=== PATIENT | male | born 1950 | race Caucasian/White ===

== ENCOUNTER 2024-02-22 08:37 | Inpatient (IN) | payer OTHER ==
[2024-02-22] MEDS ORDERED: NITROGLYCERIN 0.4 MG/TAB SL ONE (08:52)
[2024-02-22] MEDS ORDERED: ASPIRIN 81 MG CHEWABLE TABLET ONE (08:52)
[2024-02-22 09:15] LABS: Absolute Basophils 0.1 K/uL (0-0.5); Absolute Eosinophils 0.2 K/uL (0-0.5); Absolute Lymphocytes (CBC) 1.9 K/uL (0.7-4.9); Absolute Monocytes 0.6 K/uL (0.1-1.3); Absolute Neutrophil 3.4 K/uL (1.8-8.0); Basophils % 0.8 % (0-1.3); Eosinophils % 3.5 % (0-4.4); Hematocrit 37.5 % (39.6-49.0); Hemoglobin 12.7 g/dL (13.6-17.9); Lymphocytes % 31.3 % (15.3-44.8); MCH 31.6 pg (27.0-35.0); MCHC 33.7 g/dL (32.0-36.0); MCV 93.6 fL (80-100); Monocytes % 9.5 % (3.3-12.3); Neutrophils % 54.9 % (41.7-73.7); Nucleated Red Blood Cells % 0.1 % (0-0); Platelets 160 thou/uL (152-406); RBC Red Blood Cell Count 4.01 M/uL (4.33-5.43); Red Cell Distribution Width 13.7 % (12.1-15.2)
[2024-02-22 09:18] LABS: PT Prothrombin Time 12.9 SECONDS (9.5-12.5); Protime INR 1.18
[2024-02-22 09:31] LABS: Anion Gap 12.1 mEq/L (5.0-15.0); Potassium 4.1 mEq/L (3.5-5.1); Troponin High Sensitivity 11.2 pg/mL (<58.9)
--- NOTE | 2024-02-22 10:47 | EDPHYS ---
Physician Documentation [facility] Name: Nazario Stephenson Age: 73 yrs Sex: Male : 1950 Arrival Date: 02/22/2024 Time: 08:37 Bed 6 Private MD: Damian Posadas ED Physician Massimo Booth HPI: 02/21 10:41 This 73 yrs old Male presents to ER via Wheelchair with complaints of Chest Pain. rn 10:41 The patient or guardian reports chest pain that is located primarily in the substernal rn area. Onset: this morning. The pain does not radiate. Associated signs and symptoms: Pertinent positives: shortness of breath, Pertinent negatives: abdominal pain, cough. The chest pain is described as a heaviness, a pressure. Duration: The patient or guardian reports multiple episodes, that are intermittent. Modifying factors: The symptoms are alleviated by nothing. the symptoms are aggravated by nothing. Severity of pain: At its worst the pain was moderate in the emergency department the pain has improved. The patient has not experienced similar symptoms in the past. The patient has not recently seen a physician. Patient reports chest pain that got worse this morning, lasted about 30 minutes, now improving at rest. Has been having episodes of chest pain intermittently for the last 2 weeks sometimes with exertion but now happening at rest. No history of AK or stent.. Historical: - Allergies: 08:47 No Known Allergies; iw - PMHx: 08:47 Diabetes mellitus; Atrial fibrillation; iw - PSHx: 08:47 pacemaker; iw - Immunization history:: Adult Immunizations not up to date. - Social history:: Smoking status: Patient/guardian denies using tobacco, the patient reports quitting approximately 25 years ago. - Family history:: not pertinent. - Hospitalizations: : No recent hospitalization is reported. ROS: 10:41 Constitutional: Negative for fever, chills, and weight loss, Cardiovascular: Positive rn for chest pain Respiratory: Negative for shortness of breath, cough, wheezing, and pleuritic chest pain, Abdomen/GI: Negative for abdominal pain, nausea, vomiting, diarrhea, and constipation, MS/Extremity: Negative for injury and deformity, Skin: Negative for injury, rash, and discoloration, Neuro: Negative for headache, weakness, numbness, tingling, and seizure, Exam: 10:41 Constitutional: This is a well developed, well nourished patient who is awake, alert, rn and in no acute distress. Cardiovascular: Regular rate and rhythm. No pulse deficits. Respiratory: No increased work of breathing, no retractions or nasal flaring. Abdomen/GI: Soft, non-tender MS/ Extremity: Pulses equal, no cyanosis. Neurovascular intact. Full, normal range of motion. Equal circumference. 10:41 ECG was reviewed by the Attending Physician. rn Vital Signs: 08:46 BP 184 / 93; Pulse 103; Resp 16; Temp 98.1; Pulse Ox 100% on R/A; Weight 106.59 kg; iw Height 5 ft. 11 in. ; Pain 4/10; 09:00 BP 163 / 79; Pulse 84; Resp 18; Pulse Ox 97% on R/A; rs5 11:58 BP 115 / 61; Pulse 63; Resp 15; Pulse Ox 100% ; nj1 08:46 Body Mass Index 32.78 (106.59 kg, 180.34 cm) iw 08:46 Pain Scale: Adult iw MDM: 08:39 Patient medically screened. rn 10:41 Differential diagnosis: acute myocardial infarction, acute pericarditis, coronary rn artery disease pericarditis, stable angina, unstable angina. HEART Score: History: Highly Suspicious (2), ECG: Non specific repolarization disturbance / LBTB / PM (1), Age: > or = 65 years (2), Risk Factors: 1 or 2 risk factors (1), Troponin: < or = 1 x Normal Limit (0), Total Score = 6. Data reviewed: vital signs, nurses notes, lab test result(s), EKG, radiologic studies, plain films, and as a result, I will admit patient. Consideration of Admission/Observation Patient was admitted/placed on observation. Escalation of care including admission/observation considered. Care significantly affected by the following chronic conditions: Diabetes. Counseling: I had a detailed discussion with the patient and/or guardian regarding the historical points, exam findings, and any diagnostic results supporting the discharge/admit diagnosis, lab results, radiology results, the need for further work-up and treatment in the hospital. Response to treatment: the patient's symptoms have markedly improved after treatment, and as a result, I will admit patient. 02/21 08:44 Order name: Basic Metabolic Panel; Complete Time: 10:26 rn 02/21 08:44 Order name: CBC with Diff; Complete Time: 10: rn 02/21 08:44 Order name: NT PRO-BNP; Complete Time: 10: rn 02/21 08:44 Order name: PT-INR; Complete Time: 10: rn 02/21 08:44 Order name: Troponin HS; Complete Time: 10: rn 02/21 15:14 Order name: Troponin High Sensitivity; Complete Time: 15:51 EDMS 02/21 08:44 Order name: XRAY Chest (1 view); Complete Time: 11:22 rn 02/21 08:44 Order name: EKG; Complete Time: 08:45 rn 02/21 08:44 Order name: Cardiac monitoring; Complete Time: 08:48 rn 02/21 08:44 Order name: EKG - Nurse/Tech; Complete Time: 08:48 rn 02/21 08:44 Order name: IV Saline Lock; Complete Time: 08:48 rn 02/21 08:44 Order name: Labs collected and sent; Complete Time: 08:59 rn 02/21 08:44 Order name: O2 Per Protocol; Complete Time: 08:59 rn 02/21 08:44 Order name: O2 Sat Monitoring; Complete Time: 08:59 rn EC:41 Rate is 91 beats/min. Rhythm is regular. QRS interval is prolonged at 180 msec. No Q rn waves. T waves are Normal. No ST changes noted. Clinical impression: paced rhythm. Interpreted by me. Reviewed by me. Administered Medications: 08:50 Drug: Aspirin PO Chewable Tablet 324 mg PO once; 81 mg tablets x 4 Route: PO; rs5 10:05 Follow up: Response: No adverse reaction rs5 08:50 Drug: Nitroglycerin Sublingual 0.4 mg Sublingual once Route: Sublingual; rs5 10:01 Follow up: Response: No adverse reaction rs5 Disposition Summary: 02/22/24 10:47 Hospitalization Ordered Notes: Hospitalization Status: Inpatient Admission rn Provider: David Booth rn Condition: Stable rn Problem: new rn Symptoms: have improved rn Bed/Room Type: Standard rn Location: Telemetry/MedSurg (Inpatient)(02/22/24 14:00) yoselyn Room Assignment: [facility](02/22/24 14:00) reba Diagnosis - Unstable angina rn - Chest pain, unspecified rn Forms: - Medication Reconciliation Form rn - SBAR form rn - Leadership Thank You Letter rn Signatures: Dispatcher [employer] Fabi Lopez, RN Massimo Prieto MD MD rn Attema, Lee, [employer]-C [employer]-Cla1 James Gentile RN RN ja1 Ashley Martin RN RN kd3 Yfn Reed, RN RN rs5 Corrections: (The following items were deleted from the chart) 11:46 10:47 Telemetry/MedSurg (Inpatient) rn kd3 11:46 10:47 rn kd3 14:00 11:46 [facility] ER HOLD kd3 ja1 14:00 11:46 ERHOLD- kd3 ja1
--- NOTE | 2024-02-22 10:47 | ER ---
Nurse's Notes [facility] Name: Nazario Stephenson Age: 73 yrs Sex: Male : 1950 Arrival Date: 02/22/2024 Time: 08:37 Bed 6 Private MD: Damian Posadas Diagnosis: Unstable angina;Chest pain, unspecified Presentation: 02/21 08:46 Chief complaint: Patient states: chest pain X 30 minutes, worse on exertion. iw Coronavirus screen: At this time, the client does not indicate any symptoms associated with coronavirus-19. Ebola Screen: Patient negative for fever greater than or equal to 101.5 degrees Fahrenheit, and additional compatible Ebola Virus Disease symptoms Patient denies exposure to infectious person. Patient denies travel to an Ebola-affected area in the 21 days before illness onset. Initial Sepsis Screen: Does the patient meet any 2 criteria? No. Patient's initial sepsis screen is negative. Does the patient have a suspected source of infection? No. Patient's initial sepsis screen is negative. Risk Assessment: Do you want to hurt yourself or someone else? Patient reports no desire to harm self or others. Onset of symptoms was February 22, 2024. 08:46 Method Of Arrival: Wheelchair iw 08:46 Acuity: MERVAT 2 iw Historical: - Allergies: 08:47 No Known Allergies; iw - PMHx: 08:47 Diabetes mellitus; Atrial fibrillation; iw - PSHx: 08:47 pacemaker; iw - Immunization history:: Adult Immunizations not up to date. - Social history:: Smoking status: Patient/guardian denies using tobacco, the patient reports quitting approximately 25 years ago. - Family history:: not pertinent. - Hospitalizations: : No recent hospitalization is reported. Screenin:45 [facility] ED Fall Risk Assessment (Adult) History of falling in the last 3 months, rs5 including since admission No falls in past 3 months (0 pts) Confusion or Disorientation No (0 pts) Intoxicated or Sedated No (0 pts) Impaired Gait No (0 pts) Mobility Assist Device Used No (0 pt) Altered Elimination No (0 pt) Score/Fall Risk Level 0 - 2 = Low Risk Oriented to surroundings, Maintained a safe environment. 08:45 Abuse screen: Denies threats or abuse. Abuse screen: Denies threats or abuse. rs5 Nutritional screening: No deficits noted. Tuberculosis screening: No symptoms or risk factors identified. Assessment: 08:42 General: Appears in no apparent distress. uncomfortable, Behavior is calm, cooperative. rs5 Pain: Complains of pain in chest Pain does not radiate. Pain currently is 3 out of 10 on a pain scale. Quality of pain is described as aching, Pain began Is continuous. Neuro: Level of Consciousness is awake, alert, obeys commands, Oriented to person, place, time, situation. Cardiovascular: Patient's skin is warm and dry. Rhythm is regular. 08:42 Respiratory: Airway is patent Respiratory effort is even, unlabored, Respiratory rs5 pattern is regular, symmetrical. GI: Abdomen is round non-distended, Abd is soft and non tender X 4 quads. : No signs and/or symptoms were reported regarding the genitourinary system. EENT: No signs and/or symptoms were reported regarding the EENT system. Derm: Skin is intact, Skin is pink, warm \\T\\ dry. Musculoskeletal: Range of motion: intact in all extremities. 08:42 Reassessment: Pt states "earlier my chest pain was about a 7 or 8 but it's about a 3 rs5 now" . 09:07 Reassessment: Patient and/or family updated on plan of care and expected duration. Pain rs5 level reassessed. Patient is alert, oriented x 3, equal unlabored respirations, skin warm/dry/pink. Patient denies pain at this time. Pain:. Cardiovascular: Denies chest pain. Respiratory: Respiratory effort is even, unlabored, Respiratory pattern is regular, symmetrical. 10:20 Reassessment: No changes from previously documented assessment. rs5 11:55 Reassessment: Patient and/or family updated on plan of care and expected duration. Pain rs5 level reassessed. Patient is alert, oriented x 3, equal unlabored respirations, skin warm/dry/pink. Patient denies pain at this time. Cardiovascular: Rhythm is regular. Respiratory: Respiratory effort is even, unlabored, Respiratory pattern is regular, symmetrical. Vital Signs: 08:46 BP 184 / 93; Pulse 103; Resp 16; Temp 98.1; Pulse Ox 100% on R/A; Weight 106.59 kg; iw Height 5 ft. 11 in. ; Pain 03/07; 09:00 BP 163 / 79; Pulse 84; Resp 18; Pulse Ox 97% on R/A; rs5 11:58 BP 115 / 61; Pulse 63; Resp 15; Pulse Ox 100% ; nj1 08:46 Body Mass Index 32.78 (106.59 kg, 180.34 cm) iw 08:46 Pain Scale: Adult iw ED Course: 08:38 Patient arrived in ED. mr 08:38 Damian Posadas is Private Physician. mr 08:39 Massimo Booth MD is Attending Physician. rn 08:45 Patient has correct armband on for positive identification. Allergy band placed. Call rs5 light in reach. Side rails up X2. Client placed on continuous cardiac and pulse oximetry monitoring. NIBP monitoring applied. nuclear monitoring technician on. Pulse ox on. 08:45 No provider procedures requiring assistance completed. Patient maintains SpO2 rs5 saturation greater than 95% on room air. 08:46 Triage completed. iw 08:47 Arm band placed on. iw 08:47 Inserted saline lock: 20 gauge in right antecubital area, using aseptic technique. rs5 Blood collected. 08:56 Yfn Reed RN is Primary Nurse. rs5 10:17 XRAY Chest (1 view) In Process Unspecified. EDMS 10:47 David Booth MD is Hospitalizing Provider. rn 12:01 Provided Education on: use of call [place]. jl7 12:01 Patient admitted, IV remains in place. intact, No redness/swelling at site. jl7 Administered Medications: 08:50 Drug: Aspirin PO Chewable Tablet 324 mg PO once; 81 mg tablets x 4 Route: PO; rs5 10:05 Follow up: Response: No adverse reaction rs5 08:50 Drug: Nitroglycerin Sublingual 0.4 mg Sublingual once Route: Sublingual; rs5 10:01 Follow up: Response: No adverse reaction rs5 Medication: 09:13 VIS not applicable for this client. rs5 Outcome: 10:47 Decision to Hospitalize by Provider. rn 12:00 Admitted to ER Hold. Please see [facility] for further documentation. jl7 12:00 Condition: stable 12:00 Discharge instructions given to patient, 15:50 Patient left the ED. iw Signatures: Dispatcher [employer] EDND Leyla Ramírez, Reg Reg mr Fabi Smart, TIMMY WARNER Massimo Booth MD MD rn Leal, Jahala, RN RN jl7 Yfn Reed RN RN rs5 Gisele Shrestha RN RN nj1 Corrections: (The following items were deleted from the chart) 09:08 08:42 Pain: Complains of pain in chest Pain does not radiate. Pain currently is 5 out rs5 of 10 on a pain scale. Quality of pain is described as aching, Pain began Is continuous, rs5 16:11 16:11 Patient left the ED. iw iw
--- NOTE | 2024-02-22 11:04 | RAD REPORT ---
EXAM DESCRIPTION: Nicky Single View02/22/2024 10:15 am CLINICAL HISTORY: CHEST PAIN COMPARISON: CHEST PA AND LAT 2 VIEW dated 03/15/2010 TECHNIQUE: Portable AP view of the chest. FINDINGS: Decreased inspiratory effort limits evaluation. The lungs are clear. No pneumothorax or e ffusion. The cardiomediastinal contours are unremarkable. Left chest wall pacer in place. IMPRESSION: No acute cardiopulmonary process.
--- NOTE | 2024-02-22 11:37 | P.HP ---
Certification for Inpatient Patient admitted to: Inpatient With expected LOS: >2 Midnights Patient will require the following post-hospital care: None Practitioner: I am a practitioner with admitting privileges, knowledge of patient current condition, hospital course, and medical plan of care. Services: Services provided to patient in accordance with Admission requirements found in Title 42 Section 412.3 of the Code of Federal Regulations Patient History Date of Service: 02/22/24 Reason for admission: Unstable angina History of Present Illness: 73-year-old male with history of atrial fibrillation on chronic anticoagulation, hypertension, hyperlipidemia, ksd-jhjoikq-ebizojlqv diabetes with pacemaker in place presents emergency department chief complaint of chest pain. He reports has been having chest pain a few days per week usually with exertion but this time it developed while he was walking and persisted even at rest for that reason he came to the emergency department. He was evaluated in the emergency department his EKG was without STEMI criteria as initial high sensitive troponin was normal at 11.2 chest x-ray negative for acute findings. ED provider wishes to admit patient for unstable angina. Cardiology evaluated patient at bedside in the ED. - Past Medical/Surgical History -: Atrial fibrillation on chronic anticoagulation -: Hypertension -: Hyperlipidemia -: Diabetes mellitus type [id number] -: Pacemaker insertion 2022 Psychosocial/ Personal History: Lives at home with his - Family History Family History: Reviewed- Non-Contributory - Social History Smoking Status: Never smoker Alcohol use: No CD- Drugs: No Caffeine use: Yes Place of Residence: Home Review of Systems 10-point ROS is otherwise unremarkable Respiratory: Shortness of Breath Cardiovascular: Chest Pain Physical Examination - Physical Exam General: Alert, In no apparent distress, Oriented x3 HEENT: Atraumatic, PERRLA, Mucous membr. moist/pink Neck: Supple, 2+ carotid pulse no bruit, No LAD Respiratory: Clear to auscultation bilaterally, Normal air movement Cardiovascular: Regular rate/rhythm, Normal S1 S2 Gastrointestinal: Normal bowel sounds, No tenderness Musculoskeletal: No tenderness Integumentary: No rashes Neurological: Normal speech, Normal strength at 5/5 x4 extr, Normal tone, Normal affect - Studies Laboratory Data (last 24 hrs) 02/22/24 02/22/24 02/22/24 09:00 09:00 09:00 WBC 6.10 Hgb 12.7 L Hct 37.5 L Plt Count 160 PT 12.9 H INR 1.18 Sodium 137 Potassium 4.1 BUN 20 H Creatinine 1.16 Glucose 236 H Assessment and Plan - Plan Assessment: Unstable angina Atrial fibrillation on chronic anticoagulation Hypertension Hyperlipidemia Diabetes mellitus type [id number]-xuhddwyze Plan: Unstable angina Atrial fibrillation on chronic anticoagulation Last took Eliquis this morning 02/21 Hold Eliquis, will give dose therapeutic Lovenox tonight Plan for left heart catheterization afternoon of 02/22 Clear liquids after midnight, n.p.o. after breakfast on 02/22 Continue aspirin, statin, as needed morphine/nitroglycerin Currently nearly pain-free, trend troponins and monitor on telemetry Echocardiogram ordered and cardiology consulted-saw patient in ED Hypertension Hyperlipidemia Diabetes mellitus type [id number]-suyiecssc Continue home medications as appropriate ACHS Accu-Chek, sliding scale insulin DVT PPX: Therapeutic Lovenox x 1 tonight Code status: Full Discharge Plan: Home Plan to discharge in: 48 Hours - Advance Directives Does patient have a Living Will: No Does patient have a Durable POA for Healthcare: No - Code Status/Comfort Care Code Status Assessed: Yes (Full code) Critical Care: No Time Spent Managing Pts Care (In Minutes): 70
[2024-02-22 12:15] VITALS: BMI 32.8
[2024-02-22] MEDS ORDERED: NITROGLYCERIN 0.4 MG/TAB SL PRN (14:33)
[2024-02-22] MEDS ORDERED: MORPHINE 2 MG/ML SYR IV PRN (14:33)
[2024-02-22] MEDS ORDERED: ONDANSETRON 4 MG/2 ML VIAL IV PRN (14:33)
[2024-02-22] MEDS: INSULIN REGULAR (HUMAN) 100 UNIT/ML SQ SCH (14:33)
--- NOTE | 2024-02-22 18:02 | CON ---
Date of Consultation: 02/22/2024 Reason For Consultation: Chest pain. History Of Present Illness: A 73-year-old male, history of atrial fibrillation, on Eliquis. He took Eliquis this morning. Hypertension, diabetes, dyslipidemia, presented with chest pain, pressure lik e, radiates to the shoulder on an off and usually it is with exertion, but now minimal activities are bringing it on. Does not have any active chest pain at the present time. Past Medical History: As outlined above in HPI. Medications: Refer to reconciliation sheet for detailed list. Allergies: NO KNOWN DRUG ALLERGIES. Family History: No premature coronary artery disease or cancer. Social History: Does not smoke or drink. Does not use any drugs. Review of Systems: All systems were reviewed, they were negative except what was mentioned in HPI. Physical Examination: Vital Signs: Reviewed. Head and Neck: Pupils are equal, reactive to light. Intact eye movements. No JVD. No cervical lym phadenopathy. Neck is supple. Thyroid is not enlarged. Lungs: Clear to auscultation bilaterally. No rhonchi, rales, or crackles. No accessory muscle use. Heart: Regular rate and rhythm. No extra sounds. Abdomen: Soft, nontender. Bowel sounds positive. No organomegaly. No masses or hernia. No rigidi ty or rebound. Extremities: No edema, clubbing, or cyanosis. Intact pulses. Skin: No rash. No ulcers. Neurological: Alert, awake, oriented x3. No acute focal deficits appreciated. Investigations: His troponin is 11.2. BUN is 20 and creatinine 1.1. Hemoglobin is 12.7. Assessment And Recommendations: 1.Chest pain, very typical. It is unstable angina versus acute coronary syndrome. He was given asp irin. Start him on Lovenox 1 mg/kg subcu q.12 hours. He took Eliquis this morning so we will hold o ff on the angiogram until tomorrow afternoon unless his troponin rises significantly and also recomme nd to add Lipitor 40 mg q.h.s. 2.Atrial fibrillation, controlled. Continue current management. 3.Hypertension. Blood pressure is controlled. SR/MODL Voice ID: [id number] Report ID: [id number]
[2024-02-22] MEDS: ATORVASTATIN 40 MG TAB PO SCH (20:48)
[2024-02-22] MEDS: Enoxaparin 120 MG/0.8 ML SYR SQ SCH (20:49)
[2024-02-22] MEDS: APIXABAN 5 MG TABLET PO SCH (21:49)
[2024-02-23 03:42] LABS: Absolute Eosinophils 0.3 K/uL (0-0.5); Absolute Lymphocytes (CBC) 2.2 K/uL (0.7-4.9); Absolute Monocytes 0.5 K/uL (0.1-1.3); Absolute Neutrophil 3.6 K/uL (1.8-8.0); Basophils % 0.6 % (0-1.3); Eosinophils % 3.9 % (0-4.4); Hematocrit 31.9 % (39.6-49.0); Hemoglobin 10.8 g/dL (13.6-17.9); Lymphocytes % 32.6 % (15.3-44.8); MCHC 33.8 g/dL (32.0-36.0); MCV 94.7 fL (80-100); MPV 9.3 fL (7.6-11.3); Monocytes % 8.1 % (3.3-12.3); Neutrophils % 54.8 % (41.7-73.7); Nucleated Red Blood Cells % 0.1 % (0-0); Platelets 147 thou/uL (152-406); RBC Red Blood Cell Count 3.37 M/uL (4.33-5.43); Red Cell Distribution Width 13.6 % (12.1-15.2)
[2024-02-23 04:08] LABS: Albumin/Globulin Ratio 0.9 (1.1-1.8); Anion Gap 7.2 mEq/L (5.0-15.0); Bilirubin Direct 0.1 mg/dL (0-0.2); Bilirubin Indirect, Calculated 0.4 mg/dL (0.2-0.8); Bilirubin Total 0.5 mg/dL (0.2-1.0); Globulin 3.4 g/dL (2.3-3.5); Phosphorus 3.3 mg/dL (2.5-4.9); Potassium 4.2 mEq/L (3.5-5.1); Protein, Total 6.4 g/dL (6.4-8.2)
[2024-02-23] MEDS: glipiZIDE 5 MG TAB PO SCH (08:00)
[2024-02-23] MEDS: PIOGLITAZONE 15 MG TAB PO SCH (09:00)
[2024-02-23] MEDS: AMLODIPINE 5 MG TAB PO SCH (09:00)
[2024-02-23] MEDS: BERBERINE PO SCH (09:00)
[2024-02-23] MEDS: lisinopriL 20 MG TAB PO SCH (09:00)
[2024-02-23] MEDS ORDERED: HEPA 1000U/500MLS 2,000 UNIT/1,000 ML BAG IV ONE (09:06)
[2024-02-23] MEDS ORDERED: LIDOCAINE 1% 20 ML MDV ONE ×2 (09:06→15:20)
[2024-02-23] MEDS: ASPIRIN EC 81 MG TAB PO SCH (09:18)
[2024-02-23] MEDS ORDERED: VERAPAMIL HCL 10 MG/4 ML VIAL IV ONE (10:24)
[2024-02-23] MEDS ORDERED: HEPARIN 5000 UNIT/ML 1 ML VIAL ONE (10:25)
[2024-02-23] MEDS ORDERED: ATROPINE SULF 1 MG/10 ML SYR IV ONE (10:25)
[2024-02-23] MEDS ORDERED: HEPARIN 10,000 UNIT/10 ML VIAL IV ONE ×2 (10:25→15:53)
[2024-02-23] MEDS ORDERED: FENTANYL CITR 100 MCG/2 ML ONE (10:25)
[2024-02-23] MEDS ORDERED: TICAGRELOR 90 MG TABLET PO ONE ×2 (10:25→15:43)
[2024-02-23] MEDS ORDERED: MIDAZOLAM HCL 2 MG/2 ML INJ ONE (10:25)
[2024-02-23] MEDS ORDERED: CLOPIDOGREL 75 MG TABLET ONE (10:26)
[2024-02-23] MEDS ORDERED: ASPIRIN 325 MG TAB ONE (10:26)
--- NOTE | 2024-02-23 13:04 | P.PN ---
Date of Service: 02/23/24 Subjective: Denies further episodes of chest pains overnight Plan for heart catheterization today ROS: 10 point ROS as noted above, otherwise negative Physical exam GEN: Alert, oriented, NAD HEENT: Normal conjunctiva, sclera anicteric CV: Regular rate and rhythm, no edema Pulm: Nonlabored respirations on room air ABD: Soft, nontender, nondistended MSK: No joint tenderness Integumentary: No rashes Neuro: Normal speech, normal affect Vitals reviewed Assessment: Unstable angina Atrial fibrillation on chronic anticoagulation Hypertension Hyperlipidemia Diabetes mellitus type [id number]-[id number] Plan: Unstable angina Atrial fibrillation on chronic anticoagulation Last took Eliquis this morning 02/21 Hold Eliquis Plan for left heart catheterization today Continue aspirin, statin, as needed morphine/nitroglycerin No chest pain overnight-troponins did become elevated in the 100s but trended down now Echocardiogram ordered Hypertension Hyperlipidemia Diabetes mellitus type [id number] Continue home medications as appropriate ACHS Accu-Chek, sliding scale insulin DVT PPX: Therapeutic Lovenox x 1 tonight Code status: Full Discharge Plan: Home Plan to discharge in: 48 Hours Time Spent Managing Pts Care (In Minutes): 35
--- NOTE | 2024-02-23 14:03 | EKG ---
Test Date: 2024-02-22 Test Time: 08:31:26 Dairy Nutrition Specialist: SIMONA MEASUREMENT RESULTS: Intervals: Rate: 91 MN: QRSD: 180 QT: 436 QTc: 536 [place]: P: MN: QRS: -76 T: 87 INTERPRETIVE STATEMENTS: Ventricular-paced rhythm Abnormal ECG Compared to ECG 01/11/2013 09:14:20 Sinus rhythm no longer present First degree AV block no longer present Left-axis deviation no longer present Left ventricular hypertrophy no longer present Electronically Signed On 02-23-24 14:00:00 CDT by Raul Robins
[2024-02-23] MEDS ORDERED: HEPA 1000U/500MLS 1,000 UNIT/500 ML BAG IV ONE (15:06)
[2024-02-23] MEDS ORDERED: NA CHLORIDE 0.9% 500 ML ONE (15:14)
--- NOTE | 2024-02-23 16:00 | PN ---
Date of Progress Note: 02/23/2024 Subjective: Seen at bedside. At rest, he does not have any chest pain, but chest pain with normal a ctivities present. Review of Systems: Positive exertional chest pain. No nausea, vomiting, diarrhea. No abdominal pain. No dysuria, poly uria, or urinary urgency. No skin rash. All other systems were reviewed, they were negative. Physical Examination: Vital Signs: Reviewed. Head and Neck: Pupils are equal, reactive to light. Intact eye movements. No JVD. No cervical lym phadenopathy. Neck is supple. Thyroid is not enlarged. Lungs: Clear to auscultation bilaterally. No rhonchi, rales, or crackles. No accessory muscle use. Heart: Regular rate and rhythm. No extra sounds. Abdomen: Soft, nontender. Bowel sounds positive. No organomegaly. No mass or hernia. No rigidity or rebound. Extremities: No edema, clubbing, or cyanosis. Intact pulses. Skin: No rash or nodule. Neurologic: Alert, awake, oriented x3. No acute focal deficits appreciated. Investigations: Troponin is 109, down from 126, BUN 19, creatinine 1.01. Assessment/recommendations: 1.Cbj-ZT-hyeuuwmtm myocardial infarction. Continue Lovenox, baby aspirin. We will plan to do coron maulik angiogram today. However, clinical lab specialist machine is broken and it does not seem like it will be repair ed in the near future. I will recommend to transfer the patient to [facility] and will perform coronary angiogram, PCI as needed. In the interim, continue aspirin and Lovenox. 2.Elevated NT-proBNP. Obtain an echocardiogram. 3.Hypertension. Blood pressure is controlled. 4.Dyslipidemia. Change atorvastatin to 40 mg at bedtime. SR/MODL Voice ID: [id number] Report ID: [id number]
--- NOTE | 2024-02-23 17:15 | OP ---
Date of Procedure: 02/23/2024 Surgeon: LAVONNE FULLER Procedures Performed: 1.Selective coronary angiogram. 2.Left heart catheterization. 3.PCI of severe distal RCA. I used 3.0 x 28 overlapped by 2.75 x 12 mm Synergy drug-eluting stent d istally. 4.PCI of severe proximal RCA stenosis which was the culprit for the OK. I used 3.5 x 12 in the prox imal to mid and then 3.5 x 12 in the proximal segment, excellent expansion, no complications. Indication: Ixg-NJ-tzcrtlanr myocardial infarction. Access: Right radial artery 6-Nigerien closed with TR band. Complications: None. Bleeding: Less than 50 mL. Anesthesia: Total sedation time was 1 hour. Description Of Procedure: After risks, benefits, alternatives were explained, patient agreed to proc edure and signed informed consent. Patient was brought into cardiac catheterization laboratory, prep ped and draped in the usual sterile fashion. Then I accessed the right radial artery using pediatric micropuncture kit, placed a 6-Nigerien Slender sheath and took 5-Nigerien [place] 4.0 catheter into the ao rtic root over a J-wire, engaged left main and then right coronary artery, took standard views. Cath eter was pushed over the wire into the LV, measured the LVEDP and pullback did not record any gradien t. Then I exchanged for 6-Nigerien and JR4 guide, engaged the RCA, gave systemic heparin to assure ACT level 250 and gave Brilinta 180. Took a Runthrough wire into the RCA, placed it distally and using a 3.0 balloon, all lesions were pre-dilated and then we placed initially a 3.5 x 12 mm stent over the critical area and then there was a proximal edge dissection, so placed another 3.5 x 12 mm proximall y to overlap with the first stent and excellent results and then I took a 3.0 x 28 mm to the distal R CA, placed it successfully across the area of stenosis and there was still some significant stenosis distally, but the vessel tapers down, so I used 2.7 x 12 mm Synergy drug-eluting stent to overlap wit h the first stent and excellent results and then I removed the wire and final angiogram was satisfact ory. Then I removed the guide and the sheath, placed TR band with good hemostasis. Findings: 1.Left main; large and normal. 2.LAD; moderate to large size vessel with luminal irregularities. Mid segment has 20% to 30%. 3.Left circumflex has proximal 40%. Rest of it is normal. 4.The RCA has proximal 70%, then proximal to mid 99% focal, status post successful PCI and then mid to distal is 80%, status post successful PCI as above. 5.LVEDP is elevated at 14 mmHg. Conclusions: 1.Severe RCA disease, status post successful PCI as above. 2.Mild coronary artery disease elsewhere. Plan: Aspirin, high-dose statin, and Brilinta, and follow up in the office in 1 week postdischarge. SR/MODL Voice ID: [id number] Report ID: [id number]
[2024-02-23 18:52] VITALS: O2SAT 98
[2024-02-23] MEDS: ATORVASTATIN 10 MG TAB PO SCH (20:17)
[2024-02-23] MEDS: Enoxaparin 120 MG/0.8 ML SYR SQ SCH (20:17)
[2024-02-23] MEDS: TICAGRELOR 90 MG TABLET PO SCH (23:06)
[2024-02-24 05:41] LABS: Absolute Eosinophils 0.2 K/uL (0-0.5); Absolute Lymphocytes (CBC) 1.7 K/uL (0.7-4.9); Absolute Monocytes 0.6 K/uL (0.1-1.3); Basophils % 0.6 % (0-1.3); Eosinophils % 3.5 % (0-4.4); Hematocrit 31.8 % (39.6-49.0); Hemoglobin 10.7 g/dL (13.6-17.9); Lymphocytes % 26.4 % (15.3-44.8); MCH 31.8 pg (27.0-35.0); MCHC 33.6 g/dL (32.0-36.0); MCV 94.7 fL (80-100); MPV 9.4 fL (7.6-11.3); Monocytes % 8.8 % (3.3-12.3); Neutrophils % 60.7 % (41.7-73.7); Platelets 156 thou/uL (152-406); RBC Red Blood Cell Count 3.35 M/uL (4.33-5.43); Red Cell Distribution Width 13.4 % (12.1-15.2)
[2024-02-24 06:07] LABS: Anion Gap 8.7 mEq/L (5.0-15.0); Potassium 3.7 mEq/L (3.5-5.1); Troponin High Sensitivity 28.8 pg/mL (<58.9)
[2024-02-24] MEDS: POTASSIUM CL SA 10 MEQ TAB PO ONE (08:18)
[2024-02-24 08:42] VITALS: BP 132/62
[2024-02-24 09:11] VITALS: TEMP 97
--- NOTE | 2024-02-24 12:13 | ECHO ---
HEIGHT: 5 ft 11 in WEIGHT: 235 lb 0 oz DATE OF STUDY: 02/24/[address]: Berry Alford NP 2-DIMENSIONAL: YES M.MODE: YES DOPPLER: YES COLOR FLOW: YES TDS: PORTABLE: YES DEFINITY: BUBBLE STUDY: DIAGNOSIS: CHEST PAIN, UNSTABLE ANGINA CARDIAC HISTORY: CATHERIZATION: YES SURGERY: NO PROSTHETIC VALVE: NO PACEMAKER: YES MEASUREMENTS (cm) DIASTOLIC (NORMALS) SYSTOLIC (NORMALS) IVSd 1.3 (0.6-1.2) LA Diam 2.7 (1.9-4.0) LVEF 58% LVIDd 3.8 (3.5-5.7) LVIDs 2.7 (2.0-3.5) %FS 30% LVPWd 1.3 (0.6-1.2) Ao Diam 2.9 (2.0-3.7) 2 DIMENSIONAL ASSESSMENT: RIGHT ATRIUM: NORMAL LEFT ATRIUM: NORMAL RIGHT VENTRICLE: NORMAL LEFT VENTRICLE: NORMAL TRICUSPID VALVE: MILD TRICUSPID REGURGITATION MITRAL VALVE: MILD MITRAL REGURGITATION PULMONIC VALVE: NORMAL AORTIC VALVE: NORMAL PERICARDIAL EFFUSION: NONE AORTIC ROOT: NORMAL LEFT VENTRICULAR WALL MOTION: NORMAL DOPPLER/COLOR FLOW: SEE BELOW COMMENTS: 1. NORMAL LEFT VENTRICULAR EJECTION FRACTION 55-60% WITH NORMAL WALL MOTION 2. GRADE I DIASTOLIC DYSFUNCTION 3. MILD MITRAL REGURGITATION 4. MILD TRICUSPID REGURGITATION TECHNOLOGIST: DESHAUN VEGA
--- NOTE | 2024-02-24 12:39 | PN ---
Date of Progress Note: 02/24/2024 Subjective: Seen by bedside. Clinically, he is doing better. No chest pain. No complications at t he access site. Review of Systems: No chest pain, shortness of breath, orthopnea, cough. No nausea, vomiting, diarrhea. All other syst ems reviewed, they are negative. Physical Examination: Vital Signs: Reviewed. Head and Neck: Pupils are equal, reactive to light. Intact eye movements. No JVD. No cervical lym phadenopathy. Neck is supple. Thyroid is not enlarged. Lungs: Clear to auscultation bilaterally. No rhonchi, rales, or crackles. No accessory muscle use. Heart: Regular rate and rhythm. No extra sounds. Abdomen: Soft, nontender. Bowel sounds positive. No organomegaly. No masses or hernia. No rigidi ty or rebound. Extremities: No edema, clubbing, cyanosis. Intact pulses. Skin: No rash or nodule. Neurologic: Alert, awake, oriented x3. No acute focal deficits appreciated. Investigations: BUN 15, creatinine 1.03. Assessment/recommendation: 1.Acute wtb-JP-xtlxxican myocardial infarction, culprit was the RCA, status post PCI, doing well. T he patient may be released on Brilinta 90 mg twice a day, aspirin 81 mg daily, and Eliquis 2.5 mg twi ce a day. 2.Atrial fibrillation, rate is controlled. Continue Eliquis 2.5 mg twice a day. We will do triple therapy for 1 month and then drop the aspirin and we will plan to do left atrial appendage closure du ring this month. 3.Dyslipidemia. Continue Lipitor 40 mg q.h.s. 4.Hypertension. Blood pressure is controlled. From Cardiology standpoint, he can be released to se leticia pa in the office next week. SR/MODL Voice ID: [id number] Report ID: [id number]
--- NOTE | 2024-02-24 13:02 | P.DS ---
Admission Date: 02/22/24 Discharge Date: 02/24/24 Disposition: ROUTINE DISCHARGE Discharge Condition: GOOD Reason for Admission: Unstable angina Consultations: Cardiology- Dr. Puga Procedures: heart cath 02/22 with severe rca stenosis s/p pci Brief History of Present Illness: 73-year-old male with history of atrial fibrillation on chronic anticoagulation, hypertension, hyperlipidemia, xvh-czrztiw-gnbmxizmy diabetes with pacemaker in place presents emergency department chief complaint of chest pain. He reports has been having chest pain a few days per week usually with exertion but this time it developed while he was walking and persisted even at rest for that reason he came to the emergency department. He was evaluated in the emergency department his EKG was without STEMI criteria as initial high sensitive troponin was normal at 11.2 chest x-ray negative for acute findings. ED provider wishes to admit patient for unstable angina. Cardiology evaluated patient at bedside in the ED. Hospital Course: Assessment: Unstable angina-ACS with severe RCA stenosis S/P stents Atrial fibrillation on chronic anticoagulation Hypertension Hyperlipidemia Diabetes mellitus type [id number] Patient was admitted to the hospital for chest pain, his initial troponin was within normal limits at 11.2, subsequent troponins were elevated peaking at 126.9. Patient had a heart catheterization performed which showed severe RCA disease with successful PCI with 4 stents, mild coronary artery disease el sewhere. Patient has tolerated procedure well and is stable for discharge at this time. Echocardiogram performed, results pending at discharge. At discharge the patient should continue their home medications with the following adjustments/additions New medications: Brilinta 90 mg by mouth twice daily Aspirin 81 mg by mouth daily Medication changes Change pravastatin to atorvastatin 40 mg at bedtime Eliquis dose to be reduced from 5 mg by mouth twice daily to 2.5 mg by mouth twice daily Please follow-up with your primary care doctor in 1 to 2 weeks Please follow-up with Dr. Robins in the office on February 26 Vital Signs/Physical Exam: Temp Pulse Resp BP Pulse Ox 97 F 65 16 132/62 95 02/24/24 08:00 02/24/24 08:19 02/24/24 08:00 02/24/24 08:19 02/24/24 08:00 General: Alert, In no apparent distress, Oriented x3 HEENT: Atraumatic, PERRLA Neck: Supple, JVD not distended Respiratory: Clear to auscultation bilaterally, Normal air movement Cardiovascular: Regular rate/rhythm, Normal S1 S2 Gastrointestinal: Normal bowel sounds, No tenderness Musculoskeletal: No tenderness Integumentary: No rashes Neurological: Normal speech, Normal tone, Normal affect Laboratory Data at Discharge: WBC 6.60 thou/uL (4.3-10.9) 02/24/24 04:40 Hgb 10.7 g/dL (13.6-17.9) L 02/24/24 04:40 Hct 31.8 % (39.6-49.0) L 02/24/24 04:40 Plt Count 156 thou/uL (152-406) 02/24/24 04:40 PT 12.9 SECONDS (9.5-12.5) H 02/22/24 09:00 INR 1.18 02/22/24 09:00 Sodium 138 mEq/L (136-145) 02/24/24 04:40 Potassium 3.7 mEq/L (3.5-5.1) 02/24/24 04:40 BUN 15 mg/dL (7-18) 02/24/24 04:40 Creatinine 1.03 mg/dL (0.70-1.30) 02/24/24 04:40 Glucose 196 mg/dL (74-106) H 02/24/24 04:40 Phosphorus Cancelled 02/23/24 06:00 Magnesium Cancelled 02/23/24 06:00 Total Bilirubin 0.5 mg/dL (0.2-1.0) 02/23/24 02:52 AST 18 U/L (15-37) 02/23/24 02:52 ALT 19 U/L (16-61) 02/23/24 02:52 Alkaline Phosphatase 45 U/L (45-117) 02/23/24 02:52 Triglycerides 151 mg/dL (<150) H 02/23/24 02:52 Cholesterol 179 mg/dL (<200) 02/23/24 02:52 HDL Cholesterol 44 mg/dL (40-60) 02/23/24 02:52 Cholesterol/HDL Ratio 4.07 02/23/24 02:52 Home Medications: Amlodipine [Norvasc*] 5 mg PO DAILY 02/22/24 Berberine 999 mg PO BID 02/22/24 Lisinopril [Zestril] 40 mg PO BID 02/22/24 Pioglitazone [Actos*] 15 mg PO DAILY 02/22/24 glipiZIDE [Glipizide] 10 mg PO BID 02/22/24 Apixaban [Eliquis] 2.5 mg PO BID #60 tablet 02/24/24 Atorvastatin Calcium 40 mg PO BEDTIME #30 tab 02/24/24 Ticagrelor [Brilinta] 90 mg PO BID #60 tab 02/24/24 New Medications: Atorvastatin Calcium 40 mg PO BEDTIME #30 tab Ticagrelor [Brilinta] 90 mg PO BID #60 tab Apixaban [Eliquis] 2.5 mg PO BID #60 tablet Physician Discharge Instructions: Patient was admitted to the hospital for chest pain, his initial troponin was within normal limits at 11.2, subsequent troponins were elevated peaking at 126.9. Patient had a heart catheterization performed which showed severe RCA disease with successful PCI with 4 stents, mild coronary artery disease elsewhere. Patient has tolerated procedure well and is stable for discharge at this time. Echocardiogram performed, results pending at discharge. At discharge the patient should continue their home medications with the following adjustments/additions New medications: Brilinta 90 mg by mouth twice daily Aspirin 81 mg by mouth daily Medication changes Change pravastatin to atorvastatin 40 mg at bedtime Eliquis dose to be reduced from 5 mg by mouth twice daily to 2.5 mg by mouth twice daily Please follow-up with your primary care doctor in 1 to 2 weeks Please follow-up with Dr. Robins in the office on February 26 Diet: AHA Activity: Ad ginny Followup: Raul Robins MD [ACTIVE - CAN ADMIT] - 2-3 Days Damian Posadas MD [Primary Care Provider] - 1-2 Weeks Time spent managing pt's care (in minutes): 30
== END 2024-02-24 11:23 | disposition home or self-care (01) | DRG 321 ==
LOC: ER 08:37 → ERHOLD 11:24 → 4TH 14:44
PROVIDERS: ADMIT Hospitalist; ATTEND Hospitalist
PROC: 027037Z Dilation of Coronary Artery, One Artery with Four or More Drug-eluting Intraluminal Devices, Percutaneous Approach (ICD-10-PCS; principal; 2024-02-23)
PROC: 4A023N7 Measurement of Cardiac Sampling and Pressure, Left Heart, Percutaneous Approach (ICD-10-PCS; 2024-02-23)
PROC: B2111ZZ Fluoroscopy of Multiple Coronary Arteries using Low Osmolar Contrast (ICD-10-PCS; 2024-02-23)
DX: I21.4 Non-ST elevation (NSTEMI) myocardial infarction (principal); I25.110 Atherosclerotic heart disease of native coronary artery with unstable angina pectoris; I48.91 Unspecified atrial fibrillation; E78.5 Hyperlipidemia, unspecified; E11.9 Type 2 diabetes mellitus without complications; Z95.0 Presence of cardiac pacemaker; Z79.01 Long term (current) use of anticoagulants; Z79.84 Long term (current) use of oral hypoglycemic drugs; Z79.899 Other long term (current) drug therapy; Z87.891 Personal history of nicotine dependence
CPT/HCPCS: 36415; 71045; 76937; 80048; 80061; 80076; 82947; 83735; 83880; 84100; 84484; 85025; 85347; 85610; 93005; 93306; 93458; 99152; 99153; 99285; C1725; C1893; C9600; J0461; J1644; J1650; J1815; J2001; J2250; J3010; J7040; Q9967

== ENCOUNTER 2025-02-22 08:05 | Day surgery (SDC) | payer OTHER ==
--- NOTE | 2025-02-21 11:52 | RAD REPORT ---
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 COMPARISON: No prior exam. FINDINGS: The lungs are hyperexpanded suggesting COPD. The heart is upper limit of normal in size. No displaced fractures evident. Dual lead pacer device. IMPRESSION: COPD is suspected without acute finding identified. The USPSTF recommends annual screening for lung cancer with low-dose computed tomography (LDCT) in ad ults aged 50 to 80 years who have a 20 pack-year smoking history and currently smoke or have quit within the past 15 years. Screening should be discontinued once a person has not smoked for 15 years or develops a health problem that substantially limits life expectancy or the ability or willingness to have curative lung surgery.
[2025-02-21 12:42] LABS: Absolute Eosinophils 0.2 K/uL (0-0.5); Absolute Lymphocytes (CBC) 1.2 K/uL (0.7-4.9); Absolute Monocytes 0.6 K/uL (0.1-1.3); Absolute Neutrophil 2.4 K/uL (1.8-8.0); Basophils % 0.9 % (0-1.3); Hematocrit 33.4 % (39.6-49.0); Hemoglobin 11.3 g/dL (13.6-17.9); Lymphocytes % 26.6 % (15.3-44.8); MCH 32.4 pg (27.0-35.0); MCHC 33.9 g/dL (32.0-36.0); MCV 95.5 fL (80-100); MPV 9.6 fL (7.6-11.3); Monocytes % 12.8 % (3.3-12.3); Neutrophils % 54.7 % (41.7-73.7); Nucleated Red Blood Cells % 0.1 % (0-0); Platelets 142 thou/uL (152-406); Red Cell Distribution Width 14.5 % (12.1-15.2)
[2025-02-21 12:45] LABS: PT Prothrombin Time 10.9 SECONDS (10-13.0); PTT, Activated Partial Thromb 33.2 SECONDS (27.2-37.4); Protime INR 0.95
[2025-02-21 12:49] LABS: Anion Gap 9.7 mEq/L (5.0-15.0); Potassium 4.7 mEq/L (3.5-5.1)
[2025-02-22] MEDS ORDERED: NA CHLORIDE 0.9% 500 ML ONE (08:29)
[2025-02-22] MEDS ORDERED: HEPA 1000U/500MLS 2,000 UNIT/1,000 ML BAG IV ONE (08:48)
[2025-02-22] MEDS ORDERED: HEPARIN 10,000 UNIT/10 ML VIAL IV ONE (08:49)
[2025-02-22] MEDS ORDERED: MIDAZOLAM HCL 2 MG/2 ML INJ ONE (08:49)
[2025-02-22] MEDS ORDERED: ATROPINE SULF 1 MG/10 ML SYR IV ONE (08:49)
[2025-02-22] MEDS ORDERED: VERAPAMIL HCL 10 MG/4 ML VIAL IV ONE (08:49)
[2025-02-22] MEDS ORDERED: LIDOCAINE 1% 20 ML MDV ONE (08:49)
[2025-02-22] MEDS ORDERED: ASPIRIN 325 MG TAB ONE (08:50)
[2025-02-22] MEDS ORDERED: CLOPIDOGREL 75 MG TABLET ONE (08:50)
[2025-02-22] MEDS ORDERED: FENTANYL CITR 100 MCG/2 ML ONE (08:50)
[2025-02-22] MEDS ORDERED: TICAGRELOR 90 MG TABLET PO ONE (08:50)
[2025-02-22] MEDS ORDERED: HEPARIN 5000 UNIT/ML 1 ML VIAL ONE (08:50)
--- NOTE | 2025-02-22 10:15 | OP ---
Date of Procedure: 02/22/2025 Surgeon: LAVONNE FULLER Procedures Performed: 1. Selective coronary angiogram. 2. Left heart catheterization. Indication: Unstable angina. Access: Right radial artery 6-Cymraes, closed with TR band. Complications: None. Bleeding: Less than 50 mL. Sedation: None. Description Of Procedure: After risks, benefits, and alternatives were explained, the patient agreed to procedure and signed informed consent. The [facility], prepped and draped in usual sterile fashion. Then, I accessed right radial artery using pedi atric micropuncture kit and ultrasound guidance, placed 6-Cymraes Slender sheath and took 5-Cymraes [place] 4 catheter into aortic root over J-wire across the aortic valve, measured the LVEDP. Pullback did not record any gradient and engaged the RCA and took standard views and then the left main, took sta ndard views, and removed the catheter and the sheath, and placed TR band with good hemostasis. Findings: 1. Left main is long with distal 20%, but it is a very large vessel. 2. LAD; proximal segment is normal. Mid segment and distal segment, there is a focal 30% stenosis. Diagonal branch has luminal irregularities. 3. Left circumflex, proximal 30%, mid to distal 30%, and then luminal irregularities. 4. RCA, proximal 30% stenosis, then widely patent stent, and there is a focal 40% stenosis in mid to distal and then widely patent stent as well, and PDA and PLB are patent. 5. LVEDP is elevated at 20 mmHg. Conclusion: 1. Mild to moderate coronary artery disease with widely patent RCA stents. 2. Elevated LVEDP. Recommendation: Medical management. SR/MODL Voice ID: [id number] Report ID: [id number]
[2025-02-22 11:35] VITALS: O2SAT 95
[2025-02-22 12:49] VITALS: BP 143/63
--- NOTE | 2025-02-25 11:34 | EKG ---
Test Date: 2025-02-21 Test Time: 11:10:18 Embroiderer: SHANITA MEASUREMENT RESULTS: Intervals: Rate: 69 VT: QRSD: 180 QT: 466 QTc: 499 [place]: P: VT: QRS: -78 T: 84 INTERPRETIVE STATEMENTS: Electronic ventricular pacemaker Compared to ECG 02/22/2024 08:31:26 No significant changes Electronically Signed On 02-25-25 11:24:19 CDT by Naun Looney
== END 2025-02-22 11:45 | disposition home or self-care (01) ==
LOC: PRE 08:05 → CCL 11:45
PROVIDERS: ATTEND Internal Medicine
DX: I25.110 Atherosclerotic heart disease of native coronary artery with unstable angina pectoris (principal); I48.0 Paroxysmal atrial fibrillation; I10 Essential (primary) hypertension; E11.9 Type 2 diabetes mellitus without complications; E78.2 Mixed hyperlipidemia; Z95.5 Presence of coronary angioplasty implant and graft; Z87.891 Personal history of nicotine dependence; Z79.02 Long term (current) use of antithrombotics/antiplatelets; Z79.4 Long term (current) use of insulin; Z79.899 Other long term (current) drug therapy; Z82.49 Family history of ischemic heart disease and other diseases of the circulatory system
CPT/HCPCS: 93005; 85025; 80048; 36415; 85610; 85730; 71046; 93458; 76937; C1893; Q9966; J1644; J2003; J7040; J0461; J2250; J3010